=== PATIENT | male | born 1980 | race Caucasian/White ===

== ENCOUNTER 2022-11-30 19:30 | Emergency (ER) | payer OTHER ==
[2022-11-30 19:56] VITALS: BP 138/85; PULSE 72; RESP 18; TEMP 98; BMI 31.1
[2022-11-30 21:20] LABS: BASO % 0.7 % (0-2.0); EOS % 3.8 % (0-4.5); HEMATOCRIT 39.4 % (35.4-49); HEMOGLOBIN 13.5 GM/dL (11.7-16.9); LYMPH % 31.6 % (8-40); MCH 31.8 pg (25.7-33.7); MCHC 34.4 g/dl (32.0-35.9); MEAN CELL VOLUME 92.5 fl (80-96); MEAN PLT VOLUME 7.9 fl (7.5-11.1); MONO % 9.3 % (3.8-10.2); NEUT % 54.6 % (42.8-82.8); PLATELET COUNT 303 10^3/uL (134-434); RBC 4.25 M/mm3 (4.00-5.60); RDW 13.3 % (11.9-15.9); WHITE BLOOD COUNT 8.1 K/mm3 (4.0-10.0)
[2022-11-30 21:27] LABS: INR 1.06 (0.83-1.09); PROTHROMBIN TIME (PATIENT) 12.3 SEC (9.7-13.0)
[2022-11-30 21:37] LABS: POTASSIUM 3.9 mmol/L (3.5-5.1)
[2022-11-30 21:38] LABS: ALBUMIN 3.6 g/dl (3.4-5.0); CALCIUM 9.5 mg/dL (8.5-10.1)
[2022-11-30 21:39] LABS: BLOOD UREA NITROGEN 16.4 mg/dL (7-18)
[2022-11-30 21:42] LABS: CREATININE 0.9 mg/dL (0.55-1.3)
[2022-11-30 21:43] LABS: BILIRUBIN,TOTAL 0.2 mg/dL (0.2-1); TOT PROT 6.4 g/dl (6.4-8.2)
== END 2022-11-30 23:59 | disposition home or self-care (01) ==
LOC: JER 19:30
DX: R60.0 Localized edema (principal); M25.561 Pain in right knee; M23.203 Derangement of unspecified medial meniscus due to old tear or injury, right knee; K40.90 Unilateral inguinal hernia, without obstruction or gangrene, not specified as recurrent; N13.2 Hydronephrosis with renal and ureteral calculous obstruction
CPT/HCPCS: 36415; 80053; 85025; 85610; 85730; 93970-TC; 99284-25